=== PATIENT | male | born 1935 | race Caucasian/White ===

== ENCOUNTER → 2016-11-29 | Outpatient (CLI) | payer MEDICARE, BC ==
[2016-11-29 10:28] LABS: Calcium 9.1 mg/dL (8.4-10.2); Potassium 4.7 mmol/L (3.5-5.1); Total Bilirubin 0.6 mg/dL (0.2-1.3); Total Protein 6.7 g/dL (6.3-8.2)
== END ==
LOC: LABWHC1 08:58
PROVIDERS: ATTEND Internal Medicine Interventional Cardiology
DX: E78.2 Mixed hyperlipidemia (principal)
CPT/HCPCS: 36415; 80053; 80061

== ENCOUNTER 2017-02-11 19:54 | Emergency (ER) | payer MEDICARE, BC ==
[2017-02-11 20:02] VITALS: TEMP 97.7
[2017-02-11] MEDS ORDERED: LIDOCAINE URO-JET JELLY 2% 5 ML KIT URETHRAL ONE (20:25)
--- NOTE | 2017-02-11 20:43 | ED ---
General Adult HPI - General Chief complaint: Urogenital Stated complaint: Bladder retention Time Seen by Provider: 02/11/17 20:06 Source: patient, family, RN notes reviewed Mode of arrival: wheelchair Limitations: no limitations - History of Present Illness Initial comments: Chief complaint history of present illness 89-year-old male here with his significant other. The patient is here because of acute urinary retention. The patient had back surgery several weeks ago. Since then he's had a Torres catheter placed and replaced several times this morning he had the catheter removed after 2 weeks he was not able to urinate significant amounts today he was able to start the stream that it stopped midway. He presents with 400 mL's retained. A Torres catheter be replaced. - Related Data Home Medications Medication Instructions Recorded Confirmed Atenolol [Tenormin] 25 mg PO HS 03/04/14 03/09/14 Cholecalciferol [Vitamin D3] 1,000 unit PO DAILY 03/04/14 03/09/14 Docusate Sodium [Stool Softener] 200 mg PO HS 03/04/14 03/09/14 Fish Oil/Dha/Epa [Fish Oil 1,200 1 each PO DAILY 03/04/14 03/09/14 mg Fish Oil] Pantoprazole Sodium [Protonix] 40 mg PO DAILY 03/04/14 03/09/14 Propafenone Sr [Rythmol Sr] 225 mg PO Q12HR 03/04/14 03/09/14 Tamsulosin HCl [Flomax] 0.4 mg PO HS 03/04/14 03/09/14 Warfarin Sodium [Coumadin] 6 mg PO DAILY 03/04/14 03/09/14 Allergies Allergy/AdvReac Type Severity Reaction Status Date / Time No Known Allergies Allergy Verified 02/11/17 20:02 Review of Systems ROS Statement: Those systems with pertinent positive or pertinent negative responses have been documented in the HPI. Review of systems no headache chest pain shows breath GI/ problems other than that noted above. Acute urinary retention since back surgery several weeks ago. Denies fever or chills. Past medical problems COPD, GERD, hypertension and BPH. Patient had a PSA done at the [facility] was elevated at 7.5. This is been reported to his urologist , Dr. Guthrie. The patient's surgeries include tonsils, adenoids, gallbladder, heart catheterization hernia repair. Rotator cuff repair. He's also had surgery for spinal stenosis. Patient denies any ALLERGIES. ROS Other: All systems not noted in ROS Statement are negative. Past Medical History Past Medical History: COPD, GERD/Reflux, Hypertension, Prostate Disorder Additional Past Medical History / Comment(s): hiatal hernia, duodenal ulcer yrs. ago History of Any Multi-Drug Resistant Organisms: None Reported Past Surgical History: Adenoidectomy, Cholecystectomy, Heart Catheterization, Hernia Repair, Orthopedic Surgery, Tonsillectomy Additional Past Surgical History / Comment(s): right rotator cuff surg., foot surg. back sx 01/22/2017 Past Anesthesia/Blood Transfusion Reactions: No Reported Reaction Past Psychological History: No Psychological Hx Reported Smoking Status: Former smoker Past Alcohol Use History: None Reported Past Drug Use History: None Reported General Exam - General Exam Comments Initial Comments: Pertinent to the patient's examination and chief complaint. Lungs are clear heart no murmur abdomen mildly tender full bladder area. Torres catheter to be placed. Bladder scan showed excess of 400 mL's. Patient is requesting both the leg bag and a larger bag to be used at night so he does not have to empty it is often. He's been advised to continue his current medications. Vital signs temp 97.7 pulse 79 respiratory rate 18 pulse ox 96% room air blood pressure 147/67 Limitations: no limitations Course Vital Signs 02/11/17 19:58 Temperature 97.7 F Pulse Rate 79 Respiratory 18 Rate Blood Pressure 147/67 O2 Sat by Pulse 96 Oximetry Medical Decision Making - Medical Decision Making Patient's here for acute urinary retention. Patient be advised to follow-up with his urologist in the next several days to week. Continue to measure urine output. Urine being checked for urinary tract infection. Disposition Clinical Impression: Acute urinary retention Disposition: HOME SELF-CARE Condition: Fair Instructions: Urinary Retention in Men (ED) Additional Instructions: Follow-up with your urologist. Referrals: Julio C Prescott MD [Primary Care Provider] - 1-2 days Time of Disposition: 20:43
[2017-02-11 21:11] VITALS: BP 126/60; PULSE 78; RESP 16
[2017-02-11 21:20] LABS: Appearance,Urine Clear (Clear); Bacteria,Urine Rare /hpf; Bilirubin,Urine Negative (Negative); Glucose,Urine (UA) Negative (Negative); Ketones,Urine Negative (Negative); Leukocyte Esterase,Urine Small (Negative); Nitrite,Urine Negative (Negative); Particle Count 1821; Protein,Urine Negative (Negative); RBC,Urine <1 /hpf (0-5); Specific Gravity,Urine 1.007 (1.001-1.035); UA Billing (MACRO vs. MICRO) MICRO; Urobilinogen,Urine <2.0 mg/dL (<2.0); WBC,Urine 2 /hpf (0-5)
== END 2017-02-11 21:43 | disposition home or self-care (01) ==
LOC: EC 19:54
DX: R33.9 Retention of urine, unspecified (principal); I10 Essential (primary) hypertension; K21.9 Gastro-esophageal reflux disease without esophagitis; Z87.891 Personal history of nicotine dependence; Z79.01 Long term (current) use of anticoagulants; Z79.899 Other long term (current) drug therapy
CPT/HCPCS: 51798; 81001; 87086; 99283

== ENCOUNTER → 2017-02-12 | Outpatient (CLI) | payer MEDICARE, BC ==
[2017-02-12 15:57] LABS: Calcium 9.8 mg/dL (8.4-10.2); Magnesium 1.9 mg/dL (1.6-2.3); Potassium 4.7 mmol/L (3.5-5.1); Uric Acid 9.5 mg/dL (3.5-8.5)
[2017-02-12 16:28] LABS: Prostate Specific Antigen 12.9 ng/mL (0.00-4.00)
== END | disposition home or self-care (01) ==
LOC: LABWHC1 15:15
PROVIDERS: ATTEND Internal Medicine
DX: E78.5 Hyperlipidemia, unspecified (principal); I48.91 Unspecified atrial fibrillation; N40.0 Benign prostatic hyperplasia without lower urinary tract symptoms; J44.9 Chronic obstructive pulmonary disease, unspecified; E87.8 Other disorders of electrolyte and fluid balance, not elsewhere classified; R33.9 Retention of urine, unspecified; R97.20 Elevated prostate specific antigen [PSA]
CPT/HCPCS: 36415; 80048; 83735; 84153; 84550

== ENCOUNTER 2017-03-03 18:49 | Emergency (ER) | payer MEDICARE, BC ==
[2017-03-03 18:59] VITALS: RESP 18
--- NOTE | 2017-03-03 19:17 | ED ---
General Adult HPI - General Source: patient, RN notes reviewed, old records reviewed Mode of arrival: ambulatory Limitations: no limitations <Owen Ugarte - Last Filed: 03/05/17 08:10> <Alec Melendez - Last Filed: 03/07/17 12:42> - General Chief complaint: Urogenital Stated complaint: problems urinate Time Seen by Provider: 03/03/17 19:10 - History of Present Illness Initial comments: Patient 81-year-old male who presents emergency room today with a chief complaint of increased urinary retention. He does admit that he recently had a Torres removed just 3 days ago. States he did have a urinary tract infections been on antibiotics last 2 days. He does admit that he's noticed that he's had decreased stream started earlier today and now unable to void. Patient does admit to increased pain in her lower abdomen. He does admit to the urgent to urinate. He denies any other complaints or symptoms. Patient denies any recent fever, chills, shortness of breath, chest pain, back pain, abdominal pain, nausea or vomiting, numbness or tingling, constipation or diarrhea, headaches or visual changes, or any other complaints. (Owen Ugarte) - Related Data Home Medications Medication Instructions Recorded Confirmed Atenolol [Tenormin] 25 mg PO DAILY 03/04/14 03/03/17 Pantoprazole Sodium [Protonix] 40 mg PO DAILY 03/04/14 03/03/17 Propafenone Sr [Rythmol Sr] 225 mg PO Q12HR 03/04/14 03/03/17 Tamsulosin HCl [Flomax] 0.4 mg PO BID 03/04/14 03/03/17 Acetaminophen Tab [Tylenol Tab] 350 - 650 mg PO Q6H PRN 03/03/17 03/03/17 Azithromycin [Zithromax] 250 mg PO MOWEFR 03/03/17 03/03/17 Cephalexin [Keflex] 500 mg PO QID 03/03/17 03/03/17 Ferrous Sulfate [Feosol] 325 mg PO DAILY 03/03/17 03/03/17 Furosemide [Lasix] 20 mg PO BID@0800,1500 03/03/17 03/03/17 Potassium 350 mg PO DAILY 03/03/17 03/03/17 Sennosides [Senokot] 8.6 mg PO HS 03/03/17 03/03/17 Simvastatin 40 mg PO HS 03/03/17 03/03/17 Allergies Allergy/AdvReac Type Severity Reaction Status Date / Time No Known Allergies Allergy Verified 03/03/17 19:30 Review of Systems ROS Other: All systems not noted in ROS Statement are negative. <Owen Ugarte - Last Filed: 03/05/17 08:10> ROS Other: All systems not noted in ROS Statement are negative. <Alec Melendez - Last Filed: 03/07/17 12:42> ROS Statement: Those systems with pertinent positive or pertinent negative responses have been documented in the HPI. Past Medical History Past Medical History: COPD, GERD/Reflux, Hypertension, Prostate Disorder Additional Past Medical History / Comment(s): hiatal hernia, duodenal ulcer yrs. ago History of Any Multi-Drug Resistant Organisms: None Reported Past Surgical History: Adenoidectomy, Cholecystectomy, Heart Catheterization, Hernia Repair, Orthopedic Surgery, Tonsillectomy Additional Past Surgical History / Comment(s): right rotator cuff surg., foot surg. back sx 01/22/2017 Past Anesthesia/Blood Transfusion Reactions: No Reported Reaction Past Psychological History: No Psychological Hx Reported Smoking Status: Former smoker Past Alcohol Use History: None Reported Past Drug Use History: None Reported <Owen Ugarte - Last Filed: 03/05/17 08:10> General Exam Limitations: no limitations <Owen Ugarte - Last Filed: 03/05/17 08:10> <Alec Melendez - Last Filed: 03/07/17 12:42> - General Exam Comments Initial Comments: General: The patient is awake and alert, in no distress, and does not appear acutely ill. Eye: Pupils are equal, round and reactive to light, extra-ocular movements are intact. No nystagmus. There is normal conjunctiva bilaterally. No signs of icterus. Ears, nose, mouth and throat: There are moist mucous membranes and no oral lesions. Neck: The neck is supple, there is no tenderness or JVD. Cardiovascular: There is a regular rate and rhythm. No murmur, rub or gallop is appreciated. Respiratory: Lungs are clear to auscultation, respirations are non-labored, breath sounds are equal. No wheezes, stridor, rales, or rhonchi. Gastrointestinal: Soft, non-distended, tender suprapubic over the bladder. There is no rebound or guarding present. No CVA tenderness. Bowel sounds are unremarkable. Musculoskeletal: Normal ROM, no tenderness. Strength 5/5. Sensation intact. Pulses equal bilaterally 2+. Neurological: A&O x 3. CN II-XII intact, There are no obvious motor or sensory deficits. Coordination appears grossly intact. Speech is normal. Skin: Skin is warm and dry and no rashes or lesions are noted. Psychiatric: Cooperative, appropriate mood & affect, normal judgment. (Owen Ugarte) Medical Decision Making <Owen Ugarte - Last Filed: 03/05/17 08:10> <Alec Melendez - Last Filed: 03/07/17 12:42> - Medical Decision Making Patient urinary retention side attempted to place a Torres I used multiple different Torres catheters and I was unsuccessful so Dr. Guthrie came in to place a Torres. (Alec Melendez) - Lab Data Lab Results 03/03/17 Range/Units 20:45 Urine Color Yellow Urine Appearance Clear (Clear) Urine pH 5.5 (5.0-8.0) Ur Specific [place] 1.013 (1.001-1.035) Urine Protein Negative (Negative) Urine Glucose (UA) Negative (Negative) Urine Ketones 1+ H (Negative) Urine Blood Trace H (Negative) Urine Nitrite Positive (Negative) Urine Bilirubin Negative (Negative) Urine Urobilinogen 3.0 (<2.0) mg/dL Ur Leukocyte Esterase Small H (Negative) Urine RBC <1 (0-5) /hpf Urine WBC 5 (0-5) /hpf Urine Bacteria Many H (None) /hpf Disposition Time of Disposition: 19:33 <Owen Ugarte - Last Filed: 03/05/17 08:10> <Alec Melendez - Last Filed: 03/07/17 12:42> Clinical Impression: Urinary retention Disposition: HOME SELF-CARE Condition: Good Instructions: Urinary Retention in Men (ED) Additional Instructions: Please follow-up with urologist over the next 2 days. Please leave Torres catheter placed that time. Please continue previously prescribed antibiotics. Please return to emergency room for any other concerns. Referrals: Julio C Prescott MD [Primary Care Provider] - 1-2 days
[2017-03-03] MEDS ORDERED: LIDOCAINE URO-JET JELLY 2% 5 ML KIT URETHRAL ONE (20:29)
[2017-03-03 21:04] LABS: Appearance,Urine Clear (Clear); Bacteria,Urine Many /hpf; Bilirubin,Urine Negative (Negative); Glucose,Urine (UA) Negative (Negative); Ketones,Urine 1+ (Negative); Leukocyte Esterase,Urine Small (Negative); Nitrite,Urine Positive (Negative); PH, Urine 5.5 (5.0-8.0); Particle Count 6758; Protein,Urine Negative (Negative); RBC,Urine <1 /hpf (0-5); Specific Gravity,Urine 1.013 (1.001-1.035); UA Billing (MACRO vs. MICRO) MICRO; WBC,Urine 5 /hpf (0-5)
[2017-03-03 21:23] VITALS: BP 136/65; PULSE 71; TEMP 99.2
--- NOTE | 2017-03-07 01:04 | CDI ---
Dear Owen Ugarte PA-C: Please do addendum that describes confirmation of escalera catheter placement. Thank you, Tegan Jamil, Jazz Singer. If you have any questions, please contact Turbine Engineer at [phone]. mtdD
== END 2017-03-03 21:38 | disposition home or self-care (01) ==
LOC: EC 18:49
DX: R33.9 Retention of urine, unspecified (principal); R10.30 Lower abdominal pain, unspecified; R39.15 Urgency of urination; I10 Essential (primary) hypertension; K21.9 Gastro-esophageal reflux disease without esophagitis; N42.9 Disorder of prostate, unspecified; Z87.891 Personal history of nicotine dependence; Z79.899 Other long term (current) drug therapy; Z90.49 Acquired absence of other specified parts of digestive tract; Z87.19 Personal history of other diseases of the digestive system
CPT/HCPCS: 51702; 81001; 87086; 99284

== ENCOUNTER 2017-04-12 20:21 | Emergency (ER) | payer MEDICARE, BC ==
[2017-04-12 21:35] LABS: Appearance,Urine Cloudy (Clear); Bacteria,Urine Rare /hpf; Bilirubin,Urine Negative (Negative); Glucose,Urine (UA) Negative (Negative); Ketones,Urine Negative (Negative); Leukocyte Esterase,Urine Large (Negative); Mucus,Urine Rare /hpf; Nitrite,Urine Positive (Negative); Particle Count 7910; Protein,Urine 1+ (Negative); RBC,Urine 124 /hpf (0-5); Specific Gravity,Urine 1.019 (1.001-1.035); UA Billing (MACRO vs. MICRO) MICRO; Urobilinogen,Urine <2.0 mg/dL (<2.0); WBC,Urine >182 /hpf (0-5)
[2017-04-12] MEDS ORDERED: LEVOFLOXACIN 500 MG TAB PO STA (21:51)
--- NOTE | 2017-04-12 21:51 | ED ---
Male Urogenital HPI - General Chief complaint: Urogenital Stated complaint: Unable to urinate(Sent by Jyotsna) Time Seen by Provider: 04/12/17 20:37 Source: patient Mode of arrival: ambulatory Limitations: no limitations - History of Present Illness Initial comments: 81-year-old male patient presented to emergency department today for evaluation due to decreased urinary output. Patient states that he did undergo a TURP procedure 1 month ago. Patient states that he was in to see Dr. Goyal his urologist today for evaluation because he was having some burning in his rectum and his penis. He states that at his evaluation he had 100 mL of urine in his bladder Dr. Goyal was not concerned about this. He states that Dr. Goyal was aware that he was having this burning, states that it could possibly be an infection, but did not start him on any antibiotics or perform urinalysis as he was already taking Augmentin from his marketing reporting analyst for an upper respiratory infection. Tonight patient states that he has been increasing his fluid intake however feels acute is not having adequate urine output. He states that he is able to urinate and has voided multiple times since visiting the doctor's office however he doesn't feel like is completely emptying his bladder. Patient states that the burning in his rectum and penis have resolved however he is concerned about the decreased output. He denies any abdominal pain, suprapubic pressure, or abdominal cramping. He denies any dysuria. He states he is having hematuria however he was told that this is normal after the TURP procedure. Patient denies any recent fever, chills, shortness breath, chest pain , nausea, vomiting, diarrhea, constipation, back pain, numbness, tingling, weakness, headache, visual changes, or any other complaints. - Related Data Home Medications Medication Instructions Recorded Confirmed Pantoprazole Sodium [Protonix] 40 mg PO DAILY 03/04/14 04/12/17 Propafenone Sr [Rythmol Sr] 225 mg PO Q12HR 03/04/14 04/12/17 Tamsulosin HCl [Flomax] 0.4 mg PO HS 03/04/14 04/12/17 Azithromycin [Zithromax] 250 mg PO MOWEFR 03/03/17 04/12/17 Sennosides [Senokot] 12.9 mg PO HS 03/03/17 04/12/17 Simvastatin 40 mg PO HS 03/03/17 04/12/17 Amoxic-Pot Clav 875-125Mg 1 tab PO Q12HR 04/12/17 04/12/17 [Augmentin 875-125] Docusate [Colace] 100 mg PO HS 04/12/17 04/12/17 Metoprolol Tartrate 25 mg PO BID 04/12/17 04/12/17 traMADol HCl [Ultram] 50 mg PO Q6H PRN 04/12/17 04/12/17 Previous Rx's Medication Instructions Recorded Levofloxacin [Levaquin] 500 mg PO DAILY #9 tab 04/12/17 Allergies Allergy/AdvReac Type Severity Reaction Status Date / Time codeine AdvReac Severe Verified 04/12/17 21:11 Constipation hydrocodone AdvReac Severe Verified 04/12/17 21:11 Constipation Review of Systems ROS Statement: Those systems with pertinent positive or pertinent negative responses have been documented in the HPI. ROS Other: All systems not noted in ROS Statement are negative. Past Medical History Past Medical History: COPD, GERD/Reflux, Hypertension, Prostate Disorder Additional Past Medical History / Comment(s): hiatal hernia, duodenal ulcer yrs. ago History of Any Multi-Drug Resistant Organisms: None Reported Past Surgical History: Adenoidectomy, Cholecystectomy, Heart Catheterization, Hernia Repair, Orthopedic Surgery, Tonsillectomy Additional Past Surgical History / Comment(s): right rotator cuff surg., foot surg. back sx 01/22/2017 Past Anesthesia/Blood Transfusion Reactions: No Reported Reaction Past Psychological History: No Psychological Hx Reported Smoking Status: Former smoker Past Alcohol Use History: None Reported Past Drug Use History: None Reported General Exam Limitations: no limitations General appearance: alert, in no apparent distress Respiratory exam: Present: normal lung sounds bilaterally. Absent: respiratory distress, wheezes, rales, rhonchi, stridor Cardiovascular Exam: Present: regular rate, normal rhythm, normal heart sounds. Absent: systolic murmur, diastolic murmur, rubs, gallop, clicks GI/Abdominal exam: Present: soft, normal bowel sounds. Absent: distended, tenderness, guarding, rebound, rigid Extremities exam: Present: normal inspection, full ROM, normal capillary refill. Absent: tenderness, pedal edema, joint swelling, calf tenderness Back exam: Present: normal inspection. Absent: CVA tenderness (R), CVA tenderness (L) Neurological exam: Present: alert, oriented X3, CN II-XII intact Psychiatric exam: Present: normal affect, normal mood Skin exam: Present: warm, dry, intact, normal color. Absent: rash Course Vital Signs 04/12/17 04/12/17 20:23 22:00 Temperature 99.9 F H 99.2 F Pulse Rate 82 85 Respiratory 20 18 Rate Blood Pressure 157/70 146/78 O2 Sat by Pulse 96 96 Oximetry Medical Decision Making - Medical Decision Making 81-year-old male patient presents to emergency department today for concerns of decreased urine output. Patient did have an appointment with his urologist today and had 100 mL in his bladder at that time. Patient states that he has voided multiple times today however he feels like he is not completely emptying his bladder. Bladder scan in the department did show 134 mL. Patient was able to void 15 mL in the department. This was sent for urinalysis and urine culture. Urinalysis showed 1+ urine protein, moderate blood, large leukocyte Esterase, 124 red blood cells, greater than 182 white blood cells, rare bacteria and rare mucous. I did request to perform a rectal examination to further evaluate for prostate tenderness, patient states that he can tell that the prostate is swollen and would rather that I did not perform this exam. Patient stated that Dr. Goyal the urologist did not want to perform this earlier due to the swelling and therefore he refused to have me complete it. As patient does have an abnormal urinalysis and recent prostate surgery I will treat patient for prostatitis with Levaquin. The patient was instructed to stop his Augmentin as the Levaquin will treat respiratory infection as well. Again urine was sent for culture. Did recheck the patient's temperature myself was 98.7 oral. Patient was instructed to follow-up with his urologist for recheck in 1-2 days. He is instructed to complete his antibiotic prescription in full. He is instructed to obtain repeat urinalysis once his antibiotic is completed to ensure clearance of infection. Patient instructed to increase fluids. He is instructed to return here immediately if he should have cessation of voids or any further difficulties. He is instructed to return immediately for any other new, worsening, or concerning symptoms. Patient verbalizes understanding and agrees with this plan. - Lab Data Lab Results 04/12/17 Range/Units 21:13 Urine Color Yellow Urine Appearance Cloudy (Clear) Urine pH 6.0 (5.0-8.0) Ur Specific [place] 1.019 (1.001-1.035) Urine Protein 1+ H (Negative) Urine Glucose (UA) Negative (Negative) Urine Ketones Negative (Negative) Urine Blood Moderate H (Negative) Urine Nitrite Positive (Negative) Urine Bilirubin Negative (Negative) Urine Urobilinogen <2.0 (<2.0) mg/dL Ur Leukocyte Esterase Large H (Negative) Urine RBC 124 H (0-5) /hpf Urine WBC >182 H (0-5) /hpf Urine Bacteria Rare H (None) /hpf Urine Mucus Rare H (None) /hpf Disposition Clinical Impression: Prostatitis, Urinary tract infection Disposition: HOME SELF-CARE Condition: Good Instructions: Prostatitis (ED), Urinary Tract Infection in Men (ED) Additional Instructions: Increase fluids. Monitor urine output. Return immediately for any new, worsening, or concerning symptoms. Follow-up with her primary care physician for recheck in 1-2 days. Prescriptions: Levofloxacin [Levaquin] 500 mg PO DAILY #9 tab Referrals: Julio C Prescott MD [Primary Care Provider] - 1-2 days Time of Disposition: 21:50
[2017-04-12 22:01] VITALS: BP 146/78; PULSE 85; RESP 18; TEMP 99.2
== END 2017-04-12 22:01 | disposition home or self-care (01) ==
LOC: EC 20:21
DX: N39.0 Urinary tract infection, site not specified (principal); N41.9 Inflammatory disease of prostate, unspecified; K21.9 Gastro-esophageal reflux disease without esophagitis; I10 Essential (primary) hypertension; Z95.5 Presence of coronary angioplasty implant and graft; Z87.891 Personal history of nicotine dependence; Z98.890 Other specified postprocedural states; Z79.899 Other long term (current) drug therapy; Z88.5 Allergy status to narcotic agent
CPT/HCPCS: 51798; 81001; 87077; 87086; 87186; 99283

== ENCOUNTER → 2017-05-22 | Outpatient (CLI) | payer MEDICARE, BC ==
[2017-05-22 10:28] LABS: ALT 22 U/L (21-72); AST 18 U/L (17-59); Cholesterol 138 mg/dL (<200); HDL Cholesterol 35 mg/dL (40-60)
== END | disposition home or self-care (01) ==
LOC: LABWHC1 09:24
PROVIDERS: ATTEND Internal Medicine Interventional Cardiology
DX: E78.2 Mixed hyperlipidemia (principal)
CPT/HCPCS: 36415; 80061; 84450; 84460

== ENCOUNTER → 2018-01-14 | Outpatient (CLI) | payer MEDICARE, BC | END | disposition home or self-care (01) | LOC: LABWHC1 15:38 | PROVIDERS: ATTEND Internal Medicine | DX: I82.409 Acute embolism and thrombosis of unspecified deep veins of unspecified lower extremity (principal) | CPT/HCPCS: 36415; 85379 ==

== ENCOUNTER → 2018-02-17 | Outpatient (CLI) | payer MEDICARE, BC ==
[2018-02-17 11:15] LABS: Basophils % (A) 1 %; Eosinophils # (A) 0.3 k/uL (0-0.7); Eosinophils % (A) 5 %; HCT 42.3 % (39.0-53.0); Lymphocytes # (A) 1.2 k/uL (1.0-4.8); Lymphocytes % (A) 23 %; MCH 32.5 pg (25.0-35.0); MCHC 33.1 g/dL (31.0-37.0); Monocytes # (A) 0.5 k/uL (0-1.0); Monocytes % (A) 9 %; Neutrophils # (A) 3.2 k/uL (1.3-7.7); Neutrophils % (A) 61 %; Platelet Count 161 k/uL (150-450); RBC 4.32 m/uL (4.30-5.90); RDW 13.2 % (11.5-15.5); WBC 5.3 k/uL (3.8-10.6)
== END | disposition home or self-care (01) ==
LOC: LABWHC1 09:47
PROVIDERS: ATTEND Internal Medicine
DX: N40.0 Benign prostatic hyperplasia without lower urinary tract symptoms (principal); D64.9 Anemia, unspecified; M48.061 Spinal stenosis, lumbar region without neurogenic claudication; Z79.01 Long term (current) use of anticoagulants; Z51.81 Encounter for therapeutic drug level monitoring; R97.20 Elevated prostate specific antigen [PSA]
CPT/HCPCS: 36415; 85025

== ENCOUNTER → 2018-05-07 | Outpatient (CLI) | payer MEDICARE, BC ==
[2018-05-07 11:00] LABS: ALT 19 U/L (21-72); AST 26 U/L (17-59); Cholesterol 147 mg/dL (<200); HDL Cholesterol 36 mg/dL (40-60); LDL Cholesterol,Calculated 86 mg/dL (0-99); Triglycerides 126 mg/dL (<150)
== END | disposition home or self-care (01) ==
LOC: LABWHC1 09:16
PROVIDERS: ATTEND Internal Medicine Interventional Cardiology
DX: E78.2 Mixed hyperlipidemia (principal)
CPT/HCPCS: 36415; 80061; 84450; 84460

== ENCOUNTER → 2018-11-18 | Outpatient (CLI) | payer MEDICARE, BC ==
[2018-11-18 16:12] LABS: Albumin 3.8 g/dL (3.80-4.90); Albumin/Globulin Ratio 1.81 (1.60-3.17); Anion Gap 9.1 mmol/L (4.00-12.00); Carbon Dioxide 25.9 mmol/L (21.6-31.8); Globulin 2.1 g/dL (1.6-3.3); LDL Cholesterol,Calculated 75.2 mg/dL (0.0-131.0); Potassium 4.9 mmol/L (3.5-5.5); Total Bilirubin 0.5 mg/dL (0.2-1.2); Total Protein 5.9 g/dL (6.2-8.2); VLDL Calculation 15.8 mg/dL (5.00-40.00)
== END ==
LOC: LABWHC1 09:09
PROVIDERS: ATTEND Internal Medicine Interventional Cardiology
DX: E78.2 Mixed hyperlipidemia (principal)
CPT/HCPCS: 36415; 80053; 80061

== ENCOUNTER → 2019-03-06 | Outpatient (CLI) | payer MEDICARE, BC ==
--- NOTE | 2019-03-06 13:37 | US ---
EXAMINATION TYPE: US kidneys/renal and bladder DATE OF EXAM: 03/06/2019 COMPARISON: CT abdomen pelvis dated 05/26/2017 CLINICAL HISTORY: N28.9 KNOWN RENAL DISEASE. History of parapelvic cysts bilateral kidneys EXAM MEASUREMENTS: Right Kidney: 9.9 x 3.7 x 4.8 cm Left Kidney: 12.1 x 5.2 x 4.8 cm *Technical limitations due to large amount of overlying bowel content Right Kidney: dense echogenic foci noted with largest = 0.8cm. anechoic area posterior mid represents an extrarenal pelvis when correlated with the prior CT of 05/26/2017 Left Kidney: anechoic areas noted posterior mid, possible parapelvic cysts Bladder: appears wnl Bilateral Jets seen: yes There is no evidence for hydronephrosis at this point in time. No suspicious masses. The urinary blad rolando is anechoic. Bilateral ureteral jets are seen. IMPRESSION: 1. Mild left hydronephrosis versus the known renal sinus cysts. CT with contrast and delayed imaging could further evaluate this finding. 2. Nonobstructing right renal calculi measuring up to 8 mm area
== END | disposition home or self-care (01) ==
LOC: RADUSWWP 12:24
PROVIDERS: ATTEND Internal Medicine
DX: N20.0 Calculus of kidney (principal); Z88.5 Allergy status to narcotic agent
CPT/HCPCS: 76770

== ENCOUNTER → 2019-03-23 | Outpatient (CLI) | payer MEDICARE, BC ==
[2019-03-23 15:27] LABS: INR 2.1 (<1.2); Prothrombin Time 20.2 sec (9.0-12.0)
== END | disposition home or self-care (01) ==
LOC: LABWHC1 14:14
PROVIDERS: ATTEND Internal Medicine
DX: I48.91 Unspecified atrial fibrillation (principal)
CPT/HCPCS: 36415; 85610

== ENCOUNTER → 2019-04-16 | Outpatient (CLI) | payer MEDICARE, BC ==
[2019-04-16 08:06] LABS: Albumin 3.6 g/dL (3.5-5.0); Calcium 9.2 mg/dL (8.4-10.2); Potassium 4.8 mmol/L (3.5-5.1); Total Bilirubin 0.5 mg/dL (0.2-1.3); Total Protein 6.6 g/dL (6.3-8.2)
--- NOTE | 2019-04-19 19:58 | CT ---
EXAMINATION TYPE: CT soft tissue neck wo con DATE OF EXAM: 04/16/2019 COMPARISON: None HISTORY: 83-year-old male Right sided neck lump TECHNIQUE: Contiguous axial scanning of the soft tissues of the neck without IV contrast. Coronal and sagittal reconstructions performed. CT DLP: 425.8 mGycm Automated exposure control for dose reduction was used. FINDINGS: Visualized intracranial structures, orbits and globes, and mastoid air cells appear clear. Mild to moderate mucosal thickening right maxillary sinus and moderate within the ethmoid air cells. Lack of IV contrast limits assessment of the mucosal space. No contour deforming lesion seen within the nasopharynx. Epiglottis and prevertebral soft tissues appear within normal limits. Nodularity within the vallecular space is somewhat asymmetrically greater on the right, axial image 5 6 and sagittal image 42 but may simply relate to lingual tonsillar hypertrophy. Glottic and subglottic structures as well as the tracheal column appear clear. Noncontrast appearance of the thyroid and submandibular gland appear satisfactory. Left parotid gland is satisfactory. Right parotid gland shows a mildly enlarged 1.0 cm parotid space lymph node. In addition, there is a 1.7 cm short axis nodule just behind the angle of the mandible possibly repre senting a lymph node. Overlying palpable marker. No other cervical lymphadenopathy seen. 9 mm groundglass nodule at the posterior right apex. Some right apical pleural parenchymal scarring i s noted. 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 Bones: Facet arthropathy with grade 1 anterolisthesis at C5-C6 and C6-C7. IMPRESSION: 1. A 1.7 cm short axis soft tissue nodule right upper neck just behind the angle of the mandible marissa esponds to the palpable site. An abnormally enlarged lymph node is in the differential. Consider targ eted ultrasound to determine if this would be amenable to tissue sampling. 2. Additional mildly enlarged 1 cm right parotid space lymph node. 3. Some asymmetric nodularity within the right vallecular space could represent lingual tonsillar hyp ertrophy or other mucosal space lesion. Consider direct visualization. 4. A 9 mm groundglass right apical pulmonary nodule. Six-month follow-up CT chest recommended to reas sess.
== END | disposition home or self-care (01) ==
LOC: RADCTMAIN 07:22
PROVIDERS: ATTEND Internal Medicine
DX: J38.7 Other diseases of larynx (principal); R59.9 Enlarged lymph nodes, unspecified; Z88.5 Allergy status to narcotic agent; E78.2 Mixed hyperlipidemia
CPT/HCPCS: 36415; 70490; 80053; 80061

== ENCOUNTER → 2020-01-07 | Outpatient (CLI) | payer MEDICARE, BC ==
--- NOTE | 2020-01-07 13:20 | XR ---
EXAMINATION TYPE: XR thoracic spine complete DATE OF EXAM: 01/07/2020 CLINICAL HISTORY: Back pain. TECHNIQUE: Frontal, lateral, and swimmer's view of thoracic spine are obtained. COMPARISON: None. FINDINGS: Diffuse osseous demineralization is seen. There are bridging anterior osteophytes of the th oracic spine suggesting diffuse idiopathic skeletal hyperostosis versus less likely ankylosing spondy litis. Very mild compression deformity of approximately T4 is seen and slight sclerosis of approximat sarah T9. T12 is suboptimally viewed. Very minimal dextroscoliosis may be positional. Surgical clips ar e seen in the right upper quadrant from prior cholecystectomy. IMPRESSION: 1. Mild age indeterminant compression deformity of approximately T4. MRI of the thoracic spine could evaluate for bone marrow edema and determine acuity. 2. Indeterminant slight sclerosis of T9. This could also be evaluated on MRI. 3. Suboptimal visualization of T12. 4. Bridging anterior osteophytes suggesting diffuse idiopathic skeletal hyperostosis versus less like ly ankylosing spondylitis. 5. Diffuse idiopathic skeletal hyperostosis.
--- NOTE | 2020-01-07 13:29 | XR ---
EXAMINATION TYPE: XR lumbosacral spine min 4V DATE OF EXAM: 01/07/2020 CLINICAL HISTORY: Prior surgical intervention and lumbar spine pain. TECHNIQUE: Frontal, lateral, and oblique images of the lumbar spine are obtained. COMPARISON: 03/27/2016 FINDINGS: There is diffuse osseous demineralization. There is a chronic compression deformity of L4 a nd slight chronic vertebral body height loss of L2. Multilevel Schmorl's nodes are seen. Minimal grad e 1 anterolisthesis of L4 on L5 is unchanged. Extensive multilevel facet arthropathy. Small anterior osteophytes of the lumbar spine. Advanced atherosclerosis of the abdominal aorta. No discrete pars in terarticularis defects on the oblique views. Levoscoliosis of the lumbar spine is noted. No overlying dilated bowel. IMPRESSION: 1. Chronic compression deformities of L2 and L4. 2. Stable mild grade 1 anterolisthesis of L4 on L5. 3. Diffuse osseous demineralization levoscoliosis of the lumbar spine. 4. 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
== END | disposition home or self-care (01) ==
LOC: RADXRMAIN 12:42
PROVIDERS: ATTEND Internal Medicine
DX: M51.36 Other intervertebral disc degeneration, lumbar region (principal); M43.16 Spondylolisthesis, lumbar region; M19.90 Unspecified osteoarthritis, unspecified site
CPT/HCPCS: 72072; 72110

== ENCOUNTER 2020-04-22 06:21 | Day surgery (SDC) | payer MEDICARE, BC ==
[2020-04-20 13:43] VITALS: BMI 27.9
[~2020-04-22 06:21] MED LIST: ACETAMINOPHEN TAB 500 MG TAB PO ONE; DEXAMETHASONE SOD PHOSPHATE 10 MG/ML 1 ML VIAL IV ONE; HEPARIN SODIUM,PORCINE 5,000 UNIT/ML 1 ML VIAL SQ ONE; LACTATED RINGERS 1,000 ML IV SCH; MIDAZOLAM 2 MG/2 ML VIAL IV PRN; ONDANSETRON 4 MG/2 ML VIAL IVP ONE; Pre Op ABX Message 1 EACH MISC MISCELLANE ONE; fentaNYL (PF) 50 MCG/ML 2 ML AMP IV PRN
[2020-04-22 07:02] VITALS: TEMP 97
[2020-04-22] MEDS ORDERED: LIDOCAINE 1% (10MG/ML) FOR IV START INTRADERMA ONE (07:02)
[2020-04-22 07:23] LABS: INR 1.1 (<1.2); Prothrombin Time 11.7 sec (9.0-12.0)
[2020-04-22] MEDS ORDERED: PROPOFOL 10 MG/ML 20 ML VIAL IV ONE (07:34)
--- NOTE | 2020-04-22 07:41 | P.GSHP ---
History of Present Illness H&P Date: 04/22/20 Chief Complaint: Squamous cell carcinoma left chest This is a 84-year-old male who had a left chest wall lesion biopsied by Dr. Landeros. Patient was sentcarcinoma. He presents today for wide local excision. Past Medical History Past Medical History: Atrial Fibrillation, Cancer, Chest Pain / Angina, COPD, GERD/Reflux, Hypertension, Prostate Disorder Additional Past Medical History / Comment(s): bronchiectasis, skin cancer, arthritis in back, skin cancer, spinal stenosis History of Any Multi-Drug Resistant Organisms: None Reported Past Surgical History: Adenoidectomy, Cholecystectomy, Heart Catheterization, Hernia Repair, Orthopedic Surgery, Prostate Surgery, Tonsillectomy Additional Past Surgical History / Comment(s): right rotator cuff surg., spinal decompressions 2017, TURP, zuhair cataracts, laser procedure to remove fluid from behind rt eye Past Anesthesia/Blood Transfusion Reactions: Previous Problems w/ Anesthesia Additional Past Anesthesia/Blood Transfusion Reaction / Comment(s): diff voiding post op, Smoking Status: Former smoker - Past Family History Mother Family Medical History: No Reported History Medications and Allergies Home Medications Medication Instructions Recorded Confirmed Type Pantoprazole Sodium [Protonix] 40 mg PO DAILY 03/04/14 04/22/20 History Propafenone Sr [Rythmol Sr] 225 mg PO Q12HR 03/04/14 04/22/20 History Tamsulosin HCl [Flomax] 0.4 mg PO HS 03/04/14 04/22/20 History Azithromycin [Zithromax] 250 mg PO MOWEFR 03/03/17 04/22/20 History Simvastatin 40 mg PO HS 03/03/17 04/22/20 History Metoprolol Tartrate 25 mg PO BID 04/12/17 04/22/20 History Cholecalciferol [Vitamin D3 (25 1,000 unit PO DAILY 04/20/20 04/22/20 History Mcg = 1000 Iu)] Clearlax 0.5 applicate PO DAILY 04/20/20 04/22/20 History Warfarin [Coumadin] 5 mg PO SUMOTUTHFRSA 04/20/20 04/22/20 History Allergies Allergy/AdvReac Type Severity Reaction Status Date / Time codeine AdvReac Severe Verified 04/22/20 06:47 Constipation hydrocodone AdvReac Severe Verified 04/22/20 06:47 Constipation Surgical - Exam Vital Signs Temp Pulse Resp BP Pulse Ox 97.0 F L 65 18 150/72 95 04/22/20 07:01 04/22/20 07:01 04/22/20 07:01 04/22/20 07:01 04/22/20 07:01 - General well developed, well nourished, no distress - Eyes PERRL - ENT normal pinna - Neck no masses - Respiratory normal expansion - Cardiovascular Rhythm: regular - Abdomen Abdomen: soft, non tender - Integumentary 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 Patient will undergo wide local excision.
[2020-04-22] MEDS ORDERED: SODIUM CHLORIDE 0.9% 50 ML with ceFAZolin 2,000 MG IV ONE ×2 (07:50)
[2020-04-22] MEDS ORDERED: BUPIVACAINE (PF) 0.5% 30 ML VIAL SQ ONE (08:02)
--- NOTE | 2020-04-22 08:13 | P.OP ---
Date of Procedure: 04/22/20 Preoperative Diagnosis: Squamous cell carcinoma left chest wall Postoperative Diagnosis: Squamous cell carcinoma left chest wall Procedure(s) Performed: Wide local excision of squamous cell carcinoma left chest wall Anesthesia: MAC Surgeon: Sidney Mckinnon Estimated Blood Loss (ml): 5 Pathology: other (Squamous cell carcinoma) Condition: stable Description of Procedure: The patient's placed on the operative table in supine position. He received IV sedation. His left chest wall was prepped and draped usual sterile fashion. Patient had a 2 cm squamous cell carcinoma of the left chest wall which was just below the clavicle. The area was anesthetized 1% local Xylocaine. Using a 15 blade in elliptical skin incision was made around the lesion. The excised specimen measured approximately 4 x 3 cm. The Bovie was used for Hemostasis. The skin was closed with interrupted 3-0 Monocryl suture. The specimen was tagged with a suture on the medial aspect of the specimen. Dermabond dressing was applied. Patient top she will was sent to recovery room in stable condition.
[2020-04-22 08:30] VITALS: PULSE 63
[2020-04-22 08:45] VITALS: BP 136/73; RESP 18
== END 2020-04-22 08:53 | disposition home or self-care (01) ==
LOC: OR 06:21
PROVIDERS: ATTEND Surgery
DX: C44.529 Squamous cell carcinoma of skin of other part of trunk (principal); L82.1 Other seborrheic keratosis; L81.4 Other melanin hyperpigmentation; I10 Essential (primary) hypertension; I48.91 Unspecified atrial fibrillation; J47.9 Bronchiectasis, uncomplicated; E78.5 Hyperlipidemia, unspecified; K21.9 Gastro-esophageal reflux disease without esophagitis; N42.9 Disorder of prostate, unspecified; M46.90 Unspecified inflammatory spondylopathy, site unspecified; Z87.891 Personal history of nicotine dependence; Z79.01 Long term (current) use of anticoagulants; Z79.899 Other long term (current) drug therapy; Z88.5 Allergy status to narcotic agent; Z90.89 Acquired absence of other organs; Z90.49 Acquired absence of other specified parts of digestive tract; Z98.42 Cataract extraction status, left eye; Z98.41 Cataract extraction status, right eye; Z98.890 Other specified postprocedural states
CPT/HCPCS: 11604; 88305; 85610; J1100; J2405; J0690; J2704

== ENCOUNTER 2020-05-01 22:52 | Emergency (ER) | payer MEDICARE, BC ==
[2020-05-01] MEDS ORDERED: SODIUM CHLORIDE 0.9% 1,000 ML IV STA (23:13)
--- NOTE | 2020-05-01 23:44 | ED ---
Abdominal Pain HPI - General Chief Complaint: Abdominal Pain Stated Complaint: Lt Side Abd Pain Time Seen by Provider: 05/01/20 23:11 Source: patient, family Mode of arrival: wheelchair Limitations: no limitations - History of Present Illness Initial Comments: Bakari is a pleasant 84-year-old gentleman with a history of diverticulitis in the past presenting the ER today for evaluation of left lower quadrant abdominal pain. Patient reports that he was seen by his primary care physician last week for a biopsy of the skin on his left chest noted to be squamous cell. Patient was prescribed Hamilton for pain after the biopsy. Patient reports he did get somewhat backed up in 3 days ago had to use a suppository. He reports he's been having bowel movements since then but is developed severe pain in the left lower quadrant. Patient is currently on Keflex due to a laceration on his right hand sutures. Patient states that he has not had any nausea or vomiting, he still having bowel movements but has significant pain. He states this is similar to p revious episodes of diverticulitis. Denies any fevers or chills. - Related Data Home Medications Medication Instructions Recorded Confirmed Pantoprazole Sodium [Protonix] 40 mg PO DAILY 03/04/14 04/22/20 Propafenone Sr [Rythmol Sr] 225 mg PO Q12HR 03/04/14 04/22/20 Tamsulosin HCl [Flomax] 0.4 mg PO HS 03/04/14 04/22/20 Azithromycin [Zithromax] 250 mg PO MOWEFR 03/03/17 04/22/20 Simvastatin 40 mg PO HS 03/03/17 04/22/20 Metoprolol Tartrate 25 mg PO BID 04/12/17 04/22/20 Cholecalciferol [Vitamin D3 (25 1,000 unit PO DAILY 04/20/20 04/22/20 Mcg = 1000 Iu)] Clearlax 0.5 applicate PO DAILY 04/20/20 04/22/20 Warfarin [Coumadin] 5 mg PO SUMOTUTHFRSA 04/20/20 04/22/20 Previous Rx's Medication Instructions Recorded Polyethylene Glycol 3350 [Miralax] 17 gm PO DAILY #527 gm 05/02/20 Polyethylene Glycol 3350 [Miralax] 17 gm PO DAILY #527 gm 05/02/20 Allergies Allergy/AdvReac Type Severity Reaction Status Date / Time codeine AdvReac Severe Verified 05/01/20 23:10 Constipation hydrocodone AdvReac Severe Verified 05/01/20 23:10 Constipation Review of Systems ROS Statement: Those systems with pertinent positive or pertinent negative responses have been documented in the HPI. ROS Other: All systems not noted in ROS Statement are negative. Past Medical History Past Medical History: Atrial Fibrillation, Cancer, Chest Pain / Angina, COPD, GE RD/Reflux, Hypertension, Prostate Disorder Additional Past Medical History / Comment(s): bronchiectasis, skin cancer, arthritis in back, skin cancer, spinal stenosis History of Any Multi-Drug Resistant Organisms: None Reported Past Surgical History: Adenoidectomy, Cholecystectomy, Heart Catheterization, Hernia Repair, Orthopedic Surgery, Prostate Surgery, Tonsillectomy Additional Past Surgical History / Comment(s): right rotator cuff surg., spinal decompressions 2017, TURP, zuhair cataracts, laser procedure to remove fluid from behind rt eye Past Anesthesia/Blood Transfusion Reactions: Previous Problems w/ Anesthesia Additional Past Anesthesia/Blood Transfusion Reaction / Comment(s): diff voiding post op, Past Psychological History: No Psychological Hx Reported Smoking Status: Former smoker Past Alcohol Use History: None Reported Past Drug Use History: None Reported - Past Family History Mother Family Medical History: No Reported History General Exam - General Exam Comments Initial Comments: Physical Exam GENERAL: Patient is well-developed and well-nourished. Patient is nontoxic and well- hydrated and is in no distress. HENT: Normocephalic, Atraumatic. EYES: PERRL, EOMI PULMONARY: Unlabored respirations. No audible rales rhonchi or wheezing was noted. CARDIOVASCULAR: There is a regular rate and rhythm without any murmurs gallops or rubs. ABDOMEN: Tenderness to palpation of left lower quadrant SKIN: Well-healing sutures on the right hand : Deferred NEUROLOGIC: Patient is alert and oriented x3. Moving all extremities spontaneously MUSCULOSKELETAL: Normal extremities with adequate strength and full range of motion. No lower extremity swelling or edema. No calf tenderness. PSYCHIATRIC: Normal psychiatric evaluation. Limitations: no limitations Course Vital Signs 05/01/20 23:03 Temperature 98.3 F Pulse Rate 75 Respiratory 20 Rate Blood Pressure 156/75 O2 Sat by Pulse 96 Oximetry Medical Decision Making - Medical Decision Making The patient was seen and evaluated history is obtained from patient and at bedside Labs imaging were ordered Labs are unremarkable, patient has chronic kidney disease he received IV fluids prior to computed tomography scan Computed tomography scan resulted with no acute findings Reevaluated the patient. Patient has point tenderness in the left lower quadrant states hurts when he coughs or moves. Now that intra-abdominal pathology is been ruled out I have concern for likely muscle strain. I discussed this with the patient. Also discussed the patient possibility that severe pain in the soft tissues could indicate herpetic neuralgia and he should return to the ER or CBC in by his primary care if he develops any rash. All questions pertaining care were answered return parameters were discussed patient was discharged home stable condition. - Lab Data Result diagrams: 05/01/20 23:22 05/01/20 23:22 Lab Results 05/01/20 05/01/20 05/01/20 Range/Units 23:22 23:22 23:22 WBC 7.4 (3.8-10.6) k/uL RBC 4.36 (4.30-5.90) m/uL Hgb 14.1 (13.0-17.5) gm/dL Hct 42.6 (39.0-53.0) % MCV 97.7 (80.0-100.0) fL MCH 32.3 (25.0-35.0) pg MCHC 33.1 (31.0-37.0) g/dL RDW 13.3 (11.5-15.5) % Plt Count 218 (150-450) k/uL Neutrophils % 60 % Lymphocytes % 23 % Monocytes % 10 % Eosinophils % 5 % Basophils % 1 % Neutrophils # 4.5 (1.3-7.7) k/uL Lymphocytes # 1.7 (1.0-4.8) k/uL Monocytes # 0.7 (0-1.0) k/uL Eosinophils # 0.4 (0-0.7) k/uL Basophils # 0.1 (0-0.2) k/uL Sodium 136 L (137-145) mmol/L Potassium 4.3 (3.5-5.1) mmol/L Chloride 105 (98-107) mmol/L Carbon Dioxide 25 (22-30) mmol/L Anion Gap 6 mmol/L BUN 22 H (9-20) mg/dL Creatinine 1.66 H (0.66-1.25) mg/dL Est GFR (CKD-EPI)AfAm 44 (>60 ml/min/1.73 sqM) Est GFR (CKD-EPI)NonAf 38 (>60 ml/min/1.73 sqM) Glucose 131 H (74-99) mg/dL Plasma Lactic Acid Trell 1.3 (0.7-2.0) mmol/L Calcium 8.8 (8.4-10.2) mg/dL Total Bilirubin 0.6 (0.2-1.3) mg/dL AST 23 (17-59) U/L ALT 14 (4-49) U/L Alkaline Phosphatase 64 (38-126) U/L Total Protein 6.3 (6.3-8.2) g/dL Albumin 3.4 L (3.5-5.0) g/dL Urine Color Urine Appearance (Clear) Urine pH (5.0-8.0) Ur Specific [place] (1.001-1.035) Urine Protein (Negative) Urine Glucose (UA) (Negative) Urine Ketones (Negative) Urine Blood (Negative) Urine Nitrite (Negative) Urine Bilirubin (Negative) Urine Urobilinogen (<2.0) mg/dL Ur Leukocyte Esterase (Negative) 05/02/20 Range/Units 01:07 WBC (3.8-10.6) k/uL RBC (4.30-5.90) m/uL Hgb (13.0-17.5) gm/dL Hct (39.0-53.0) % MCV (80.0-100.0) fL MCH (25.0-35.0) pg MCHC (31.0-37.0) g/dL RDW (11.5-15.5) % Plt Count (150-450) k/uL Neutrophils % % Lymphocytes % % Monocytes % % Eosinophils % % Basophils % % Neutrophils # (1.3-7.7) k/uL Lymphocytes # (1.0-4.8) k/uL Monocytes # (0-1.0) k/uL Eosinophils # (0-0.7) k/uL Basophils # (0-0.2) k/uL Sodium (137-145) mmol/L Potassium (3.5-5.1) mmol/L Chloride (98-107) mmol/L Carbon Dioxide (22-30) mmol/L Anion Gap mmol/L BUN (9-20) mg/dL Creatinine (0.66-1.25) mg/dL Est GFR (CKD-EPI)AfAm (>60 ml/min/1.73 sqM) Est GFR (CKD-EPI)NonAf (>60 ml/min/1.73 sqM) Glucose (74-99) mg/dL Plasma Lactic Acid Trell (0.7-2.0) mmol/L Calcium (8.4-10.2) mg/dL Total Bilirubin (0.2-1.3) mg/dL AST (17-59) U/L ALT (4-49) U/L Alkaline Phosphatase (38-126) U/L Total Protein (6.3-8.2) g/dL Albumin (3.5-5.0) g/dL Urine Color Light Yellow Urine Appearance Clear (Clear) Urine pH 5.5 (5.0-8.0) Ur Specific [place] 1.016 (1.001-1.035) Urine Protein Negative (Negative) Urine Glucose (UA) Negative (Negative) Urine Ketones Negative (Negative) Urine Blood Negative (Negative) Urine Nitrite Negative (Negative) Urine Bilirubin Negative (Negative) Urine Urobilinogen <2.0 (<2.0) mg/dL Ur Leukocyte Esterase Negative (Negative) Disposition Clinical Impression: Abdominal pain, 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
[2020-05-02 00:08] LABS: Basophils # (A) 0.1 k/uL (0-0.2); Basophils % (A) 1 %; Eosinophils # (A) 0.4 k/uL (0-0.7); Eosinophils % (A) 5 %; HCT 42.6 % (39.0-53.0); HGB 14.1 gm/dL (13.0-17.5); Lymphocytes # (A) 1.7 k/uL (1.0-4.8); Lymphocytes % (A) 23 %; MCH 32.3 pg (25.0-35.0); MCHC 33.1 g/dL (31.0-37.0); MCV 97.7 fL (80.0-100.0); Mean Platelet Volume 7.9; Monocytes # (A) 0.7 k/uL (0-1.0); Monocytes % (A) 10 %; Neutrophils # (A) 4.5 k/uL (1.3-7.7); Neutrophils % (A) 60 %; Platelet Count 218 k/uL (150-450); RBC 4.36 m/uL (4.30-5.90); RDW 13.3 % (11.5-15.5); WBC 7.4 k/uL (3.8-10.6)
[2020-05-02 00:23] LABS: Albumin 3.4 g/dL (3.5-5.0); Calcium 8.8 mg/dL (8.4-10.2); Potassium 4.3 mmol/L (3.5-5.1); Total Bilirubin 0.6 mg/dL (0.2-1.3); Total Protein 6.3 g/dL (6.3-8.2)
--- NOTE | 2020-05-02 01:08 | CT ---
EXAMINATION TYPE: CT abdomen pelvis w con DATE OF EXAM: 05/02/2020 COMPARISON: 05/26/2017 HISTORY: Left Flank Pain CT DLP: 1294.50 mGycm Automated exposure control for dose reduction was used. CONTRAST: Performed with IV Contrast, patient injected with 80 mL of Isovue 300. There is some patchy atelectasis at the lung bases. There is no pericardial effusion. There is small hiatal hernia. Liver and spleen appear normal. The bile ducts are not dilated. There are clips from c holecystectomy. Stomach is intact. There is no evidence of pancreatic mass. There is pancreatic atrop hy. There is no adrenal mass. Kidneys show satisfactory contrast opacification. There is no hydronephrosi s. Delayed images show normal renal excretion. There are multiple large renal parapelvic cysts. Urete rs are not dilated. There is no retroperitoneal adenopathy. Bladder distends smoothly. There is no in guinal hernia. There are sigmoid diverticula without sign of diverticulitis. There is no mesenteric edema. There is no ascites or free air. There is no bowel obstruction. There i s 1.5 cm umbilical hernia that contains fat. Appendix is not seen. There is no sign of thickened appe ndix. There are some mild spondylotic changes in the lumbar spine. There is laminectomy defect in the lumbar spine at L4 level. There is 20% biconcave compression deformity of 4 vertebra unchanged. The bony pelvis is intact. There is mild lumbar levoscoliosis. IMPRESSION: Appendix not seen. No sign of appendicitis. Bilateral renal parapelvic cysts. No renal obstruction. There is mild sigmoid diverticulosis without diverticulitis. No adverse change compared to old exam. There is clearing of the inflammatory changes of the proximal sigmoid colon compared to old exam.
[2020-05-02 01:16] LABS: Appearance,Urine Clear (Clear); Bilirubin,Urine Negative (Negative); Blood,Urine Negative (Negative); Color,Urine Light Yellow; Glucose,Urine (UA) Negative (Negative); Ketones,Urine Negative (Negative); Leukocyte Esterase,Urine Negative (Negative); Nitrite,Urine Negative (Negative); PH, Urine 5.5 (5.0-8.0); Protein,Urine Negative (Negative); Specific Gravity,Urine 1.016 (1.001-1.035); Urobilinogen,Urine <2.0 mg/dL (<2.0)
[2020-05-02 02:02] VITALS: BP 158/94; PULSE 64; RESP 18; TEMP 97.8
== END 2020-05-02 02:01 | disposition home or self-care (01) ==
LOC: EC 22:52
DX: K59.03 Drug induced constipation (principal); K63.89 Other specified diseases of intestine; T40.605A Adverse effect of unspecified narcotics, initial encounter; R10.32 Left lower quadrant pain; I12.9 Hypertensive chronic kidney disease with stage 1 through stage 4 chronic kidney disease, or unspecified chronic kidney disease; N18.9 Chronic kidney disease, unspecified; I48.91 Unspecified atrial fibrillation; K21.9 Gastro-esophageal reflux disease without esophagitis; N42.9 Disorder of prostate, unspecified; I25.2 Old myocardial infarction; Z79.01 Long term (current) use of anticoagulants; Z79.899 Other long term (current) drug therapy; Z87.891 Personal history of nicotine dependence; Z88.5 Allergy status to narcotic agent; Z85.828 Personal history of other malignant neoplasm of skin; Z90.79 Acquired absence of other genital organ(s); Z90.49 Acquired absence of other specified parts of digestive tract; Z87.19 Personal history of other diseases of the digestive system; Z98.890 Other specified postprocedural states
CPT/HCPCS: 36415; 80053; 83605; 85025; 81003; 87040; 74177; 99284; Q9967

== ENCOUNTER → 2020-05-04 | Outpatient (CLI) | payer MEDICARE, BC ==
[2020-05-04 22:31] LABS: African American GFR (CKD) 45.5 (60.0-200.0); Albumin 3.8 g/dL (3.80-4.90); Albumin/Globulin Ratio 1.73 (1.60-3.17); Anion Gap 8.7 mmol/L (4.00-12.00); BUN/Creat Ratio 12.5 Ratio (12.00-20.00); Calcium 8.9 mg/dL (8.7-10.3); Carbon Dioxide 23.3 mmol/L (21.6-31.8); Chol/HDL Ratio 3.65; Globulin 2.2 g/dL (1.6-3.3); LDL Cholesterol,Calculated 77.8 mg/dL (0.0-131.0); Non-African American GFR(CKD) 39.3 (60.0-200.0); Potassium 4.8 mmol/L (3.5-5.5); Total Bilirubin 0.5 mg/dL (0.3-1.2); VLDL Calculation 12.2 mg/dL (5.00-40.00)
== END | disposition home or self-care (01) ==
LOC: LABWHC1 12:49
PROVIDERS: ATTEND Internal Medicine Interventional Cardiology
DX: E78.2 Mixed hyperlipidemia (principal)
CPT/HCPCS: 36415; 80053; 80061

== ENCOUNTER → 2021-05-02 | Outpatient (CLI) | payer MEDICARE, BC ==
[2021-05-02 16:33] LABS: Basophils # (A) 0.05 X 10*3/uL (0.00-0.10); Basophils % (A) 0.9 %; Eosinophils % (A) 6.9 %; HCT 43.6 % (39.6-50.0); HGB 14.1 g/dL (13.0-17.0); Lymphocytes # (A) 1.37 X 10*3/uL (0.90-5.00); Lymphocytes % (A) 23.7 %; MCHC 32.3 g/dL (32.0-37.0); MCV 99.1 fL (80.0-97.0); Mean Platelet Volume 11.7 fL (9.5-12.2); Monocytes # (A) 0.59 X 10*3/uL (0.20-1.00); Monocytes % (A) 10.2 %; Neutrophils # (A) 3.35 X 10*3/uL (1.80-7.70); Platelet Count 186 X 10*3/uL (140-440); RDW 13.8 % (11.5-14.5); WBC 5.78 X 10*3/uL (4.50-10.00)
[2021-05-02 17:32] LABS: Erythrocyte Sedimentation Rate 14 mm/Hr (0-20)
[2021-05-04 02:14] LABS: Prostate Specific Antigen 10.6 ng/mL (0.00-6.50)
[2021-05-04 03:01] LABS: African American GFR (CKD) 32.7 (60.0-200.0); Albumin 3.8 g/dL (3.8-4.9); Albumin/Globulin Ratio 1.5 (1.60-3.17); Anion Gap 17.4 mmol/L (4.00-12.00); BUN/Creat Ratio 13.06 Ratio (12.00-20.00); Blood Urea Nitrogen 27.3 mg/dL (9.0-27.0); Calcium 9.2 mg/dL (8.7-10.3); Carbon Dioxide 16.8 mmol/L (21.6-31.8); Chol/HDL Ratio 4.04 Ratio; Globulin 2.6 g/dL (1.6-3.3); HDL Cholesterol 36.1 mg/dL (40.00-60.00); LDL Cholesterol,Calculated 86.1 mg/dL (0.0-131.0); Non-African American GFR(CKD) 28.2 (60.0-200.0); Potassium 5.1 mmol/L (3.5-5.5); Total Bilirubin 0.3 mg/dL (0.30-1.20); Total Protein 6.4 g/dL (6.2-8.2); VLDL Calculation 23.8 mg/dL (5.00-40.00)
== END | disposition home or self-care (01) ==
LOC: LABWHC1 09:04
PROVIDERS: ATTEND Internal Medicine Interventional Cardiology
DX: R97.20 Elevated prostate specific antigen [PSA] (principal); I12.9 Hypertensive chronic kidney disease with stage 1 through stage 4 chronic kidney disease, or unspecified chronic kidney disease; N40.0 Benign prostatic hyperplasia without lower urinary tract symptoms; J44.9 Chronic obstructive pulmonary disease, unspecified; E87.8 Other disorders of electrolyte and fluid balance, not elsewhere classified; N18.30 Chronic kidney disease, stage 3 unspecified; E78.5 Hyperlipidemia, unspecified
CPT/HCPCS: 36415; 80053; 80061; 84153; 84443; 85025; 85652

== ENCOUNTER → 2022-04-19 | Outpatient (CLI) | payer MEDICARE, BC ==
[2022-04-19 15:36] LABS: ALT 18 U/L (10-49); AST 21 U/L (14-35); African American GFR (CKD) 36.4 (60.0-200.0); Albumin 3.8 g/dL (3.8-4.9); Albumin/Globulin Ratio 1.52 (1.60-3.17); Alkaline Phosphatase 66 U/L (41-126); BUN/Creat Ratio 12.37 Ratio (12.00-20.00); Blood Urea Nitrogen 23.5 mg/dL (9.0-27.0); Carbon Dioxide 24.6 mmol/L (20.0-27.5); Chloride 105 mmol/L (96-109); Chol/HDL Ratio 3.97 Ratio; Globulin 2.5 g/dL (1.6-3.3); Glucose 113 mg/dL (70-110); LDL Cholesterol,Calculated 80.7 mg/dL (0.0-131.0); Non-African American GFR(CKD) 31.4 (60.0-200.0); Sodium 138 mmol/L (135-145); Total Protein 6.3 g/dL (6.2-8.2)
== END | disposition home or self-care (01) ==
LOC: LABWHC1 08:51
PROVIDERS: ATTEND Internal Medicine Interventional Cardiology
DX: E78.2 Mixed hyperlipidemia (principal)
CPT/HCPCS: 36415; 80053; 80061

== ENCOUNTER → 2023-04-23 | Outpatient (CLI) | payer OTHER ==
[2023-04-23 16:07] LABS: Blood Urea Nitrogen 24.3 mg/dL (9.0-27.0); Chloride 107 mmol/L (96-109); Chol/HDL Ratio 3.98 Ratio; Glucose 99 mg/dL (70-110); Potassium 5.4 mmol/L (3.5-5.5); Sodium 141 mmol/L (135-145)
[2023-04-23 16:08] LABS: ALT 13 U/L (10-49); AST 19 U/L (14-35); Albumin 3.7 d/dL (3.8-4.9); Albumin/Globulin Ratio 1.48 Ratio (1.60-3.17); Alkaline Phosphatase 56 U/L (41-126); Calcium 9.2 mg/dL (8.7-10.3); Carbon Dioxide 25.5 mmol/L (21.6-31.8); Globulin 2.5 d/dL (1.6-3.3); Total Bilirubin 0.4 mg/dL (0.3-1.2); Total Protein 6.2 d/dL (6.2-8.2)
== END | disposition home or self-care (01) ==
LOC: LABWHC1 09:25
PROVIDERS: ATTEND Internal Medicine Interventional Cardiology
DX: E78.2 Mixed hyperlipidemia (principal)
CPT/HCPCS: 36415; 80053; 80061

== ENCOUNTER → 2024-01-01 | Outpatient (CLI) | payer MEDICARE, BC | END | disposition home or self-care (01) | LOC: LABWHC1 11:54 | PROVIDERS: ATTEND Internal Medicine | DX: N40.0 Benign prostatic hyperplasia without lower urinary tract symptoms (principal) | CPT/HCPCS: 36415; 84153 ==

== ENCOUNTER → 2024-04-28 | Outpatient (CLI) | payer MEDICARE, BC ==
[2024-04-28 10:56] LABS: Creatinine,Urine Random 110.8 mg/dL; Protein/Creatinine Ratio,Urine 0.063
[2024-04-28 16:27] LABS: Basophils # (A) 0.05 X 10*3/uL (0.00-0.10); Basophils % (A) 0.8 %; Eosinophils # (A) 0.38 X 10*3/uL (0.04-0.35); Eosinophils % (A) 5.8 %; HCT 41.3 % (39.6-50.0); HGB 13.6 g/dL (13.0-17.0); Lymphocytes # (A) 1.13 X 10*3/uL (0.90-5.00); Lymphocytes % (A) 17.3 %; MCH 32.1 pg (27.0-32.0); MCHC 32.9 g/dL (32.0-37.0); MCV 97.4 FL (80.0-97.0); Monocytes # (A) 0.61 X 10*3/uL (0.20-1.00); Monocytes % (A) 9.3 %; NRBC Per 100 WBC 0 X 10*3/uL (0.00-0.01); Neutrophils # (A) 4.34 X 10*3/uL (1.80-7.70); Neutrophils % (A) 66.5 %; Platelet Count 167 X 10*3/uL (140-440); RBC 4.24 X 10*6/uL (4.40-5.60); RDW 14.3 % (11.5-14.5); WBC 6.53 X 10*3/uL (4.50-10.00)
[2024-04-28 16:47] LABS: Erythrocyte Sedimentation Rate 6 mm/Hr (0-20)
[2024-04-28 17:07] LABS: % Iron Saturation 22.14 (15.00-50.00); ALT 15 U/L (10-49); AST 19 U/L (14-35); Albumin 3.8 g/dL (3.8-4.9); Albumin/Globulin Ratio 1.58 Ratio (1.60-3.17); Alkaline Phosphatase 56 U/L (41-126); BUN/Creat Ratio 16.55 Ratio (12.00-20.00); Blood Urea Nitrogen 33.1 mg/dL (9.0-27.0); C Reactive Protein <0.30 mg/dL (0.00-0.80); Calcium 9.2 mg/dL (8.7-10.3); Carbon Dioxide 23.5 mmol/L (21.6-31.8); Chloride 107 mmol/L (96-109); Chol/HDL Ratio 3.67 Ratio; Creatine Kinase 101 U/L (35-257); Globulin 2.4 g/dL (1.6-3.3); Glucose 102 mg/dL (70-110); Iron 58 UG/DL (65-175); LDL Cholesterol,Calculated 82.2 mg/dL (0.0-131.0); Phosphorus 3.2 mg/dL (2.4-5.1); Potassium 5.1 mmol/L (3.5-5.5); Sodium 141 mmol/L (135-145); Total Bilirubin 0.3 mg/dL (0.3-1.2); Total Iron Binding Capacity 262 UG/DL (228-460); Total Protein 6.2 g/dL (6.2-8.2); Uric Acid 6.9 mg/dL (3.7-8.7); VLDL Calculation 16.68 mg/dL (5.00-40.00)
== END | disposition home or self-care (01) ==
LOC: LABWHC1 09:01
PROVIDERS: ATTEND Internal Medicine Interventional Cardiology
DX: Z00.00 Encounter for general adult medical examination without abnormal findings (principal); I12.9 Hypertensive chronic kidney disease with stage 1 through stage 4 chronic kidney disease, or unspecified chronic kidney disease; D63.1 Anemia in chronic kidney disease; N18.30 Chronic kidney disease, stage 3 unspecified; J44.9 Chronic obstructive pulmonary disease, unspecified; E03.9 Hypothyroidism, unspecified; E78.2 Mixed hyperlipidemia; E55.9 Vitamin D deficiency, unspecified; M81.0 Age-related osteoporosis without current pathological fracture; M10.9 Gout, unspecified
CPT/HCPCS: 36415; 80053; 80061; 82272; 82306; 82550; 82570; 82728; 83540; 83550; 83735; 83970; 84100; 84153; 84156; 84443; 84550; 85025; 85652; 86140

== ENCOUNTER → 2025-01-21 | Outpatient (CLI) | payer OTHER ==
--- NOTE | 2025-01-21 15:26 | CT ---
EXAMINATION TYPE: CT brain wo con DATE OF EXAM: 01/21/2025 COMPARISON: None CLINICAL INDICATION: Male, 89 years old with history of R42 DIZZINESS AND GIDDINESS; PHH, dizziness CT DLP: 1202.1 mGycm Automated exposure control for dose reduction was used. Findings: The ventricles, basal cisterns and sulci over convexities are mildly enlarged consistent with mild ge neralized atrophy, appropriate for the patient's age. There is mild decreased density in the periventricular white matter consistent with mild chronic isch emic white matter demyelination. There is no mass effect or shift of midline structures. There is no acute intra or extra-axial hemorrhage. The posterior fossa including the brainstem, fourth ventricle and cerebellopontine angles appear raymond sly normal. The intraorbital contents appear normal symmetric Visualized paranasal sinuses and mastoid air cells are well aerated. Calvarium is intact. IMPRESSION: 1. No acute bleed or mass effect. 2. Mild age-appropriate senescent changes. [facility], , 01/21/2025 3:24 PM
--- NOTE | 2025-01-21 15:55 | US ---
EXAMINATION TYPE: US carotid duplex BILAT DATE OF EXAM: 01/21/2025 COMPARISON: NONE CLINICAL INDICATION: Male, 89 years old with history of R42 DIZZINESS; Pt states dizziness Additional History: .... TECHNIQUE: Grayscale, color Doppler and spectral Doppler evaluation of the bilateral carotid systems and vertebral arteries. Indirect Doppler criteria was utilized. FINDINGS: EXAM MEASUREMENTS: RIGHT: Peak Systolic Velocity (PSV) cm/sec ----- Right CCA: 85.3 ----- Right ICA: 97.8 ----- Right ECA: 127.0 ICA/CCA ratio: 1.1 RIGHT: End Diastole cm/sec ----- Right CCA: 14.9 ----- Right ICA: 29.2 ----- Right ECA: 9.0 LEFT: Peak Systolic Velocity (PSV) cm/sec ----- Left CCA: 115.8 ----- Left ICA: 106.9 ----- Left ECA: 104.3 ICA/CCA ratio: 0.9 LEFT: End Diastole cm/sec ----- Left CCA: 23.3 ----- Left ICA: 30.5 ----- Left ECA: 0.0 VERTEBRALS (direction of flow): Right Vertebral: Antegrade Left Vertebral: Antegrade Rhythm: Normal MECHANICAL ENGINEERING MANAGER NOTES: No significant stenosis seen Color Doppler imaging shows patency with blood flow throughout the carotid artery. Spectral waveforms are within normal limits. IMPRESSION: Right: No hemodynamically significant stenosis. Left: No hemodynamically significant stenosis. Criteria for Assigning % of Stenosis / Diameter reduction (Estimation based on the indirect measurements of the internal carotid artery velocities (ICA PSV). 1. Normal (no stenosis)=ICA PSV < 180 cm/s: ratio < 2.0: ICA EDV<40 cm/s. 2. Less than 50% stenosis=ICA PSV < 180 cm/s: ratio < 2.0: ICA EDV<40 cm/s. 3. 50 to 69% stenosis=ICA PSV of 180 to 230 cm/s: ration 2.0 ? 4.0: ICA EDV 40-100 cm/s. PSV 125-180 cm/sec and ICA/CCA PSV Ratio ? 2.0 is also consistent with 50-69% stenosis 4. Greater than 70% stenosis to near occlusion= ICA PSV > 230 cm/s: ratio > 4.0: ICA EDV > 100 cm/s. 5. Near occlusion= ICA PSV velocities may be low or undetectable: variable ratio and ICA EDV. 6. Total occlusion=unable to detect flow. [facility], , 01/21/2025 3:53 PM
== END | disposition home or self-care (01) ==
LOC: RADCTMAIN 14:40
PROVIDERS: ATTEND Family Medicine
DX: R42 Dizziness and giddiness (principal); G31.89 Other specified degenerative diseases of nervous system
CPT/HCPCS: 70450; 93880

== ENCOUNTER → 2025-01-27 | Outpatient (CLI) | payer OTHER ==
[2025-01-27 13:54] VITALS: BP 131/73; PULSE 65; RESP 18; TEMP 97.8
--- NOTE | 2025-01-27 16:17 | P.PAINPG ---
PQRS Measure Charge Sheet Comment: HISTORY OF PRESENT ILLNESS: A 89 yr old male w at side as a referral from the [facility] presents today w severe and chronic LBP > 5 yrs secondary to radiculopathy, spondylosis and facet arthropathy without myelopathy for evaluation. Pt states pain level is provoked at 9-10 /10 in intensity, constant, localized in the lumbar spine, predominantly axial, sore in character w occasional shooting pain towards the BLEs. Pain is provoked by standing. Pain is alleviated by physician guided home stretches every other day since 2020, heat, medications, topical, repositioning and rest . Oswestry axial pain score at 38. PMH: OA, aFib, Skin CA, Angina, COPD, Bronchiectasis, GERD, HTN, BPH PSH: Spinal Decompression (2017), Adenoidectomy, Cholecystectomy, Heart Catheterization, Hernia Repair, R RCT Surgery, TURP, Tonsillectomy, BL Cataract Extraction SH: Former tobacco user, No ETOH use, No illicit drug use FH: Mo- No Reported History All: See list Medications include Tyl, Lidoderm REVIEW OF ORGAN SYSTEMS: CONSTITUTIONAL: No fevers or chills. No recent weight loss. NEUROLOGICAL: + numbness and tingling along the distal extremities. No seizure disorders or headaches. MUSCULOSKELETAL: + pain PSYCHIATRIC: Denies current depression or suicidal thoughts. Physical Examinations : Constitutional : Cooperative , not in acute distress . Neurologic : Cranial nerve II to XII intact. No focal neurological deficits. Psychiatric : alert & oriented x 3. Matching mood & appropriate affect. Judgment & insight intact. Musculoskeletal : Cervical Spine Motor strength in the deltoid and biceps: Normal right side. Normal Left side Motor strength biceps and the wrist extensors: Normal right side . Normal left side Motor strength in the triceps muscle: Normal right side. Normal left side Deep tendon reflexes: Normal at the biceps. Normal at Brachioradialis. Normal at triceps Vertebral body tenderness to deep palpation over Cervical facet loading test: positive bilaterally Spurling test: positive bilaterally Neck distraction test: positive bilaterally Afua sign: positive bilaterally Lumbar spine Motor strength lower extremities ,thigh and legs 5/5 Right side , 5/5 Left side Deep tendon reflexes : Normal Knee Jerk. Normal Ankle Jerk Vertebral body tenderness over L5 Merino Test positive Lumbar facet Loading Test: positive Right / positive Left Range of motion of the lumbar spine Flexion 30 degrees, extension 10 degrees Straight Leg Raise test: Left/ Right positive at 30 degrees Wesly test: positive right / positive left. Severe tenderness over the Sacroiliac joint on the Right / Left sides Gaenslen test: positive bilaterally Seated flexion test: positive bilaterally. Sacral spine : Severe tenderness over the Sacroiliac joint: right side / left side Range of motion: Flexion of the lumbar spine <60 degrees Range of motion: Extension of the flex mbar spine <20 degrees Gaenslen's Test positive Wesly test: positive right side / left side Thigh Thrust Test Sacral Thrust Test Imaging: MRI non contrast lumbar spine from 01/08/25 reviewed Assessment/ Plan : Levoconvex scoliosis, L2-L3 anterolisthesis, L2-S1 radiculopathy Recommendation of EFREN L5-S1 #1. Risks, benefits of procedure discussed and patient verbalized understanding. Admits to anti- coagulant use or medical history of diabetes. Medical clearance from Dr Hoffman for Xarelto. Protocol for discontinuation/ continuation of medications carina procedure discussed. Minimal anesthesia provided, if clinically indicated, consisting of Versed and Fentanyl. All questions answered. I have spent greater than 30 minutes on patient care today. Dr Kauffman was available by phone for the evaluation of this patient. The time was used to review the medical records including relevant urine studies and Prescription history (MAPs), review of the available imaging, evaluation and examination of the patient, coordination of care with the medical staff and if applicable referring physicians, as well as creation of the medical record PQRS Narrative: Smoking Status Former smoker Home Medications: Ambulatory Orders Pantoprazole Sodium [Protonix] 40 mg PO DAILY 03/04/14 Propafenone Sr [Rythmol Sr] 225 mg PO Q12HR 03/04/14 Tamsulosin HCl [Flomax] 0.4 mg PO HS 03/04/14 Azithromycin [Zithromax] 250 mg PO MOWEFR 03/03/17 Simvastatin 40 mg PO HS 03/03/17 Metoprolol Tartrate 25 mg PO BID 04/12/17 Cholecalciferol [Vitamin D3 (25 Mcg = 1000 Iu)] 1,000 unit PO DAILY 04/20/20 Clearlax 0.5 applicate PO DAILY 04/20/20 Warfarin [Coumadin] 5 mg PO SUMOTUTHFRSA 04/20/20 polyethylene glycoL 3350 [Miralax] 17 gm PO DAILY #527 gm 05/02/20 polyethylene glycoL 3350 [Miralax] 17 gm PO DAILY #527 gm 05/02/20 HYDROcodone/APAP 5-325MG [[place]hel 5-325] 1 tab PO Q4HR PRN 3 Days #18 tab 01/27/25 Controlled Substance Measures - Controlled Substance Measures Is patient prescribed a controlled substance at discharge?: Yes When asked, does pt state using other controlled substances?: No If prescribed controlled substance>3 days was MAPS reviewed?: Prescribed <3 Days
== END ==
LOC: PNWHC3 12:54
PROVIDERS: ATTEND Specialist
DX: M47.27 Other spondylosis with radiculopathy, lumbosacral region (principal); M43.16 Spondylolisthesis, lumbar region; M41.86 Other forms of scoliosis, lumbar region; Z87.891 Personal history of nicotine dependence; Z88.5 Allergy status to narcotic agent
CPT/HCPCS: 99211

== ENCOUNTER 2025-02-17 19:59 | Emergency (ER) | payer OTHER, MEDICARE ==
[2025-02-17 20:11] VITALS: TEMP 98.1
[2025-02-17] MEDS: ACETAMINOPHEN TAB 500 MG TAB PO STA (20:35)
[2025-02-17] MEDS: BACITRACIN OINT 1 EACH PACKET TOPICAL ONE (20:36)
[2025-02-17] MEDS: LIDOCAINE 4% PATCH TOPICAL ONE (20:36)
[2025-02-17] MEDS: MORPHINE SULFATE 4 MG/ML SYRINGE IVP STA (20:38)
[2025-02-17 20:55] LABS: Basophils # (A) 0.06 10*3/uL (0.00-0.10); Basophils % (A) 0.7 %; Eosinophils # (A) 0.34 10*3/uL (0.04-0.35); Eosinophils % (A) 4.2 %; HCT 38.8 % (39.6-50.0); HGB 13.2 g/dL (13.0-17.0); Lymphocytes # (A) 1.47 10*3/uL (0.90-5.00); Lymphocytes % (A) 18.1 %; MCH 32.8 pg (27.0-32.0); MCHC 34.0 g/dL (32.0-37.0); MCV 96.3 fL (80.0-97.0); Monocytes # (A) 0.91 10*3/uL (0.20-1.00); Monocytes % (A) 11.2 %; Neutrophils # (A) 5.29 10*3/uL (1.80-7.70); Neutrophils % (A) 65.4 %; Platelet Count 187 10*3/uL (140-440); RBC 4.03 10*6/uL (4.40-5.60); RDW 14.1 % (11.5-14.5); WBC 8.10 10*3/uL (4.50-10.00)
--- NOTE | 2025-02-17 20:56 | ED ---
Fall HPI - General Chief Complaint: Fall Stated Complaint: L sided pain Time Seen by Provider: 02/17/25 20:12 Source: patient, family, RN notes reviewed Mode of arrival: wheelchair Limitations: no limitations - History of Present Illness Initial Comments: This is an 89-year-old male who presents to the emergency department for a fall. Patient tripped and fell over a pipe in his basement and landed on his left side, causing pain to the left chest and rib cage area. Denies hitting his head or any LOC. He does have a small skin tear on his left forearm. He is on Xarelto but had stopped taking it for a couple of days in anticipation of a pain management procedure tomorrow for steroid injections in his spine. The most bothersome area is to the left chest/rib cage area from the impact. States that it is painful to touch, move, and breathe. MD Complaint: fall - Related Data Home Medications Medication Instructions Recorded Confirmed Pantoprazole Sodium [Protonix] 40 mg PO DAILY 03/04/14 02/16/25 Propafenone Sr [Rythmol Sr] 225 mg PO Q12HR 03/04/14 02/16/25 Tamsulosin HCl [Flomax] 0.4 mg PO HS 03/04/14 02/16/25 Simvastatin 40 mg PO HS 03/03/17 02/16/25 Metoprolol Tartrate 12.5 mg PO BID 04/12/17 02/16/25 Albuterol Inhaler [Ventolin Hfa 1 - 2 puff INHALATION Q6H PRN 02/16/25 02/16/25 Inhaler] Rivaroxaban [Xarelto] 15 mg PO DAILY 02/16/25 02/16/25 Previous Rx's Medication Instructions Recorded polyethylene glycoL 3350 [Miralax] 17 gm PO DAILY #527 gm 05/02/20 HYDROcodone/APAP 5-325MG [Limington 1 tab PO Q6HR PRN 3 Days #12 tab 02/17/25 5-325] Lidocaine 5% Patch [Lidoderm 5% 1 patch TOPICAL DAILY PRN #30 patch 02/17/25 Patch] Ondansetron Odt [Zofran Odt] 4 mg PO Q8HR PRN #15 tab 02/17/25 methocarbamoL [Robaxin-750] 750 mg PO QID PRN #30 tab 02/17/25 Allergies Allergy/AdvReac Type Severity Reaction Status Date / Time azithromycin [From Zithromax] Allergy Rash/Hives Verified 02/17/25 20:06 Review of Systems ROS Statement: Those systems with pertinent positive or pertinent negative responses have been documented in the HPI. ROS Other: All systems not noted in ROS Statement are negative. Past Medical History Past Medical History: Atrial Fibrillation, Cancer, Chest Pain / Angina, COPD, GERD/Reflux, Hypertension, Prostate Disorder Additional Past Medical History / Comment(s): bronchiectasis, skin cancer, arthritis in back, skin cancer, spinal stenosis History of Any Multi-Drug Resistant Organisms: None Reported Past Surgical History: Adenoidectomy, Cholecystectomy, Heart Catheterization, Hernia Repair, Orthopedic Surgery, Prostate Surgery, Tonsillectomy Additional Past Surgical History / Comment(s): right rotator cuff surg., spinal decompressions 2017, TURP, zuhair cataracts, laser procedure to remove fluid from behind rt eye Past Anesthesia/Blood Transfusion Reactions: Previous Problems w/ Anesthesia Additional Past Anesthesia/Blood Transfusion Reaction / Comment(s): diff voiding post op, Past Psychological History: No Psychological Hx Reported Smoking Status: Former smoker Past Alcohol Use History: None Reported Past Drug Use History: None Reported - Past Family History Mother Family Medical History: No Reported History General Exam Limitations: no limitations General appearance: alert, in no apparent distress Head exam: Present: atraumatic, normocephalic, normal inspection Respiratory exam: Present: normal lung sounds bilaterally, chest wall tenderness. Absent: respiratory distress, wheezes, rales, rhonchi, stridor Cardiovascular Exam: Present: regular rate, normal rhythm Neurological exam: Present: alert, oriented X3, CN II-XII intact Psychiatric exam: Present: normal affect, normal mood Skin exam: Present: other (Superficial skin tear to the left forearm) Course Vital Signs 02/17/25 02/17/25 02/17/25 20:06 20:36 21:32 Temperature 98.1 F Pulse Rate 80 70 Respiratory 16 18 Rate Blood Pressure 133/69 136/77 116/80 O2 Sat by Pulse 92 L 94 L Oximetry 02/17/25 23:58 Temperature Pulse Rate 67 Respiratory 17 Rate Blood Pressure 143/77 O2 Sat by Pulse 94 L Oximetry Medical Decision Making - Medical Decision Making This is an 89-year-old male who presents to the emergency department for left- sided rib cage pain from a fall. Was pt. sent in by a medical professional or institution? @ -No Did you speak to anyone other than the patient for history? @ -No Did you review nursing and triage notes? @ -Yes, and I agree, it is accurate with regards to the patient's symptoms. Were old charts reviewed? @ -No Differential Diagnosis? @ -Rib fracture, rib contusion, pneumothorax, this is not meant to be an all- inclusive list. EKG interpreted by me (3pts min.)? @ -EKG interpreted by me demonstrating the following: Sinus rhythm. Ventricular rate 72 bpm, MT interval 236 ms, QRS duration 108 ms, QTc 409 ms. X-rays interpreted by me (1pt min.)? @ -Not obtained CT interpreted by me (1pt min.)? @ -CT scan of the chest obtained. My interpretation identifies buckling of the left ribs 3 and 6. U/S interpreted by me (1pt. min.)? @ -Not obtained What testing was considered but not performed? (CT, X-rays, U/S, labs)? Why? @ -None What meds were considered but not given? Why? @ -None Did you discuss the management of the patient with other professionals? @ -No Did you reconcile home meds? @ -No Was smoking cessation discussed for >3mins.? @ -No Was critical care preformed (if so, how long)? @ -No Were there social determinants of health that impacted care today? How? (Homelessness, low income, unemployed, alcoholism, drug addiction, transportat ion, low edu. Level, literacy, decrease access to med. care, [facility], rehab)? @ -No Was there de-escalation of care discussed even if they declined? (Discuss DNR or withdrawal of care, Hospice)? @ -No What co-morbidities impacted this encounter? (DM, HTN, Smoking, COPD, CAD, Cancer, CVA, Hep., AIDS, mental health diagnosis, sleep apnea, morbid obesity)? @ -A-fib, COPD Was patient admitted / discharged? @ -Discharged. While his pain was related to impact from the trauma, his was also concerned about cardiac issues potentially contributing to his pain. We did obtain lab work which was unremarkable. Troponin negative. Renal function is stable when compared to prior. CT scan of the chest obtained demonstrating cortical buckling of left ribs 3 and 6 suggesting nondisplaced fractures. He is of note also found to have right upper lung groundglass opacities that will need follow-up in [address] chest. Findings reviewed with the patient in that his pain is likely related to the rib fractures. He also had a skin tear to his left forearm that was bandaged with Steri-Strips. Tetanus vaccine is up-to-date. His pain was treated in the emergency department. He does have a higher pain tolerance and was given a prescription for Limington, lidocaine patches, and Robaxin. Zofran prescribed for any abdominal upset. He is unable to take NSAIDs due to blood thinner use. Advised he take the Limington sparingly when his pain is most severe and also advised that both that and the Robaxin may make him drowsy. He is also advised to make sure he takes several deep breaths an hour despite the pain to reduce the risk of developing a secondary pneumonia. Advised follow-up with his PCP in the next couple of days for reevaluation as well as discussion of further pain control while he recovers. Patient discharged home in stable condition. Case discussed with ED attending Dr. Santoro. Return precautions reviewed in depth, the patient is instructed to return to the emergency department with any new, worsening, or concerning symptoms. Patient verbalized understanding. Undiagnosed new problem with uncertain prognosis? @ -None Drug Therapy requiring intensive monitoring for toxicity (Heparin, Nitro, Insulin, Cardizem)? @ -None Were any procedures done? @ -None Diagnosis/symptom? @ -Fall, 2 rib fractures, skin tear Acute, or Chronic, or Acute on Chronic? @ -Acute Uncomplicated (without systemic symptoms) or Complicated (systemic symptoms)? @ -Uncomplicated Side effects of treatment? @ -None Exacerbation, Progression, or Severe Exacerbation] @ -Not applicable Poses a threat to life or bodily function? @ -The pain may limit his ability to function to some extent. - Lab Data Result diagrams: 02/17/25 20:32 02/17/25 20:32 Lab Results 02/17/25 02/17/25 02/17/25 Range/Units 20:32 20:32 20:32 WBC 8.10 (4.50-10.00) 10*3/uL RBC 4.03 L (4.40-5.60) 10*6/uL Hgb 13.2 (13.0-17.0) g/dL Hct 38.8 L (39.6-50.0) % MCV 96.3 (80.0-97.0) fL MCH 32.8 H (27.0-32.0) pg MCHC 34.0 (32.0-37.0) g/dL Plt Count 187 (140-440) 10*3/uL MPV 10.9 (9.5-12.2) fL Immature Gran % (Auto) 0.4 % Neutrophils % 65.4 % Lymphocytes % 18.1 % Monocytes % 11.2 % Eosinophils % 4.2 % Basophils % 0.7 % Immature Gran # 0.03 (0.00-0.04) 10*3/uL Neutrophils # 5.29 (1.80-7.70) 10*3/uL Lymphocytes # 1.47 (0.90-5.00) 10*3/uL Monocytes # 0.91 (0.20-1.00) 10*3/uL Eosinophils # 0.34 (0.04-0.35) 10*3/uL Basophils # 0.06 (0.00-0.10) 10*3/uL Sodium 138 (137-145) mmol/L Potassium 4.8 (3.5-5.1) mmol/L Chloride 106 (98-107) mmol/L Carbon Dioxide 23 (22-30) mmol/L Anion Gap 9 mmol/L BUN 32 H (9-20) mg/dL Creatinine 2.21 H (0.66-1.25) mg/dL Est GFR (CKD-EPI)AfAm 30 (>60 ml/min/1.73 sqM) Est GFR (CKD-EPI)NonAf 26 (>60 ml/min/1.73 sqM) Glucose 107 H (74-99) mg/dL Calcium 9.6 (8.4-10.2) mg/dL Total Bilirubin 0.8 (0.2-1.3) mg/dL AST 23 (17-59) U/L ALT 12 (4-49) U/L Alkaline Phosphatase 55 (38-126) U/L Troponin I <0.012 (0.000-0.034) ng/mL Total Protein 6.4 (6.3-8.2) g/dL Albumin 3.6 (3.5-5.0) g/dL - Radiology Data Radiology results: report reviewed, image reviewed Disposition Clinical Impression: Fall, Multiple rib fractures, Skin tear Disposition: HOME SELF-CARE Instructions (If sedation given, give patient instructions): Rib Fracture (ED), Fall Prevention for Older Adults (ED) Additional Instructions: Return to the emergency department with any new, worsening, or concerning sy mptoms. Begin taking Tylenol daily and take the Limington sparingly when your pain is the most severe. Be aware that it may make you drowsy. You can also apply the lidocaine patches daily. You can take the Robaxin as 1 to 2 tablets up to 3-4 times daily. However, be aware that this also may make you drowsy and you should use caution if taking this with the Limington. The Zofran can be taken up to every 8 hours as needed for nausea and vomiting. You will need to do your best to take several deep breaths an hour despite the pain to reduce the risk of developing a secondary pneumonia. Make sure you follow-up with your primary care provider in the next couple of days to reevaluate your symptoms and discuss an ongoing pain regimen while you recover. Prescriptions: Lidocaine 5% Patch [Lidoderm 5% Patch] 1 patch TOPICAL DAILY PRN #30 patch PRN Reason: Pain HYDROcodone/APAP 5-325MG [Limington 5-325] 1 tab PO Q6HR PRN 3 Days #12 tab PRN Reason: Pain methocarbamoL [Robaxin-750] 750 mg PO QID PRN #30 tab PRN Reason: Pain Ondansetron Odt [Zofran Odt] 4 mg PO Q8HR PRN #15 tab PRN Reason: Nausea And Vomiting Is patient prescribed a controlled substance at d/c from ED?: Yes When asked, does pt state using other controlled substances?: No If prescribed controlled substance>3 days was MAPS reviewed?: Prescribed <3 Days Referrals: Bolivar Leon DO [Primary Care Provider] - 1-2 days Time of Disposition: 23:09
[2025-02-17 21:05] LABS: ALT 12 U/L (4-49); AST 23 U/L (17-59); African American GFR (CKD) 30 (>60 ml/min/1.73 sqM); Albumin 3.6 g/dL (3.5-5.0); Alkaline Phosphatase 55 U/L (38-126); Anion Gap 9 mmol/L; Blood Urea Nitrogen 32 mg/dL (9-20); Calcium 9.6 mg/dL (8.4-10.2); Carbon Dioxide 23 mmol/L (22-30); Chloride 106 mmol/L (98-107); Glucose 107 mg/dL (74-99); Non-African American GFR(CKD) 26 (>60 ml/min/1.73 sqM); Potassium 4.8 mmol/L (3.5-5.1); Sodium 138 mmol/L (137-145); Total Protein 6.4 g/dL (6.3-8.2)
--- NOTE | 2025-02-17 21:28 | CT ---
EXAMINATION TYPE: CT chest wo con DATE OF EXAM: 02/17/2025 9:07 PM COMPARISON: Chest radiograph from same day CLINICAL INDICATION: Male, 89 years old with history of Fall, left sided rib/chest pain, Pt presents with left sided pain from a fall. LEFT SIDED RIB PAIN TECHNIQUE: Multiple axial images were obtained through the chest. Sagittal and coronal reformats were created for review. MIP was performed on a separate workstation. Contrast used: mL of (None if empty) Oral contrast used: (None if empty) CT DLP: 402.6 mGycm, Automated exposure control for dose reduction was used. FINDINGS: LUNGS/ PLEURA: No focal consolidation, pneumothorax or pleural effusion. Right upper lobe 3 mm pulmon justice nodule series 201 image 55r additional linear image 71. Right upper lobe groundglass opacity has slightly increased in size from 04/16/2019 measuring 12 mm previously 9 mm. AIRWAY: Patent and unremarkable. HEART: Size within normal limits. No significant coronary artery calcifications. MEDIASTINUM: No gross evidence of adenopathy. VASCULATURE: Atherosclerotic calcifications are present throughout the aorta and its branches. MUSCULOSKELETAL: Buckling of the left anterior ribs 3 and 6. Moderate disc degeneration changes are p resent throughout the thoracolumbar spine secondary to osteophyte formation and facet joint arthropat hy. Bridging syndesmophytes of the anterior longitudinal ligament. SOFT TISSUES/LYMPH NODES: Unremarkable. LOWER NECK: No significant findings. UPPER ABDOMEN: Gallbladder surgically absent. Peripelvic renal cysts partially visualized. No follow- up recommended. IMPRESSION: 1. Cortical buckling of left ribs 3 and 6 suggesting nondisplaced fractures. 2. Right upper lung ground glass opacity with likely scarring present. Mildly increased in size from 2019 other small sub-4 mm nodules present. Consider follow-up in one year with CT chest. 3. Diffuse idiopathic skeletal hyperostosis. [facility], , 02/17/2025 9:26 PM
[2025-02-17] MEDS: HYDROmorphone 1 MG/ML 1 ML SYRINGE IVP STA (21:34)
[2025-02-17] MEDS: ONDANSETRON 4 MG/2 ML VIAL IVP STA (23:22)
[2025-02-17] MEDS: FAMOTIDINE 20 MG TAB PO STA (23:22)
[2025-02-17] MEDS: ACET/COD 300 MG/30 MG STARTER PACK 6 TAB BTL PO STA (23:29)
[2025-02-17] MEDS: ONDANSETRON 4 MG ODT STARTER PACK 2 TAB BTL PO STA (23:29)
[2025-02-17] MEDS: HYDROcodone/APAP 5-325MG 1 EACH TAB PO STA (23:30)
[2025-02-18] VITALS: BP 143/77; PULSE 67; RESP 17
== END 2025-02-17 23:59 | disposition home or self-care (01) ==
LOC: EC 19:59
DX: S22.42XA Multiple fractures of ribs, left side, initial encounter for closed fracture (principal); Z87.891 Personal history of nicotine dependence; Z88.1 Allergy status to other antibiotic agents; W01.0XXA Fall on same level from slipping, tripping and stumbling without subsequent striking against object, initial encounter
CPT/HCPCS: 36415; 80053; 84484; 85025; 71250; 99284; 96374; 96375; J2270; J1171; S0119